=== PATIENT | female | born 1970 | race Caucasian/White ===

== ENCOUNTER 2025-03-01 12:18 | Outpatient (CLI) | payer OTHER, SELFPAY ==
--- NOTE | 2025-03-01 | ECG_ITS ---
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 Interpretive Statements EXERCISE STRESS TEST EXERCISE DATA: The patient was exercised by Wood protocol. Baseline heart rate was 60 beats per minute. Baseline blood pressure was 120/76 millimeters of mercury. Maximal predicted heart rate was 167 beats per minute. Maximum heart rate achieved was 156 which was 93% of the maximum predicted heart rate. Maximum blood pressure was 200/86 millimeters of mercury. Total exercise time was 11 minutes. Maximum METs achieved was 13.5. The reason for ending the test was completion of protocol. The patient complained of shortness of breath during the stress test, which then resolved at the end of the test. ELECTROCARDIOGRAM: BASELINE: Showed sinus rhythm, normal axis, no significant ST-T changes at the baseline noted. [] EXERCISE: At the peak exercise level, [] No significant ST-T changes suggestive of ischemia noted. [] RECOVERY: During the recovery period, heart rate dropped appropriately. No significant ST-T changes in the recovery suggestive of ischemia noted. [] CONCLUSION: 1. Exercise capacity is excellent 2. Heart rate response was appropriate 3. Blood pressure response was hypertensive 4. Symptoms not suggestive of ischemia. 5. Stress test does not demonstrate evidence of ischemia Electronically Signed On 03-02-2025 23:45:00 CDT by Sawyer Colon M.D. [email or web address]
[2025-03-01 12:44] VITALS: BMI 23.6
[2025-03-01 13:31] VITALS: BP 157/79; PULSE 86
--- NOTE | 2025-03-01 15:45 | USCV_ITS ---
Jayy Huynh Age: 54 Gender: F : 1970 Exam Date: 03/01/2025 15:59 Ordering Phys: Elbert Macedo MD ([email or web address]) Technologist: Blake Doss Exam Location: [facility] [place] Indication: cardiac clearance, chest pain, sob BP: 122 / 80 HR: 64 Rhythm: Sinus Technical Quality: Adequate MEASUREMENTS (Male / Female) Normal Values 2D ECHO LV Diastolic Diameter PLAX 3.9 cm 4.2 - 5.9 / 3.9 - 5.3 cm IVS Diastolic Thickness 0.7 cm 0.6 - 1.0 / 0.6 - 0.9 cm IVS Systolic Thickness 0.9 cm LVPW Diastolic Thickness 1.0 cm 0.6 - 1.0 / 0.6 - 0.9 cm LVPW Systolic Thickness 1.5 cm LVOT Diameter 2.0 cm LV Ejection Fraction 2D Teich 60.3 % LV Ejection Fraction MOD 4C 67.0 % LV Ejection Fraction MOD 2C 62.2 % LV Ejection Fraction 2C AL 61.6 % LA Diameter 3.5 cm RA Systolic Volume 4C AL 47.1 ml RA Systolic Volume 4C MOD 47.0 ml LA Sys Volume AL 51.7 cm cubed LA Sys Volume Index AL 28.1 cm cubed/m squared Aorta at Sinotubular Diameter 2.2 cm IVC Diameter 2.2 cm M-MODE LA Ao Ratio MM 1.3 MV E Point Septal Separation 0.3 cm AV Cusp Separation MM 1.4 cm DOPPLER AV Peak Velocity 161.0 cm/s LVOT Peak Velocity 101.0 cm/s AV Area Cont Eq vti 2.4 cm squared AV Area Cont Eq pk 2.0 cm squared MV Peak Velocity 124.0 cm/s MV Area PHT 7.2 cm squared Mitral E to A Ratio 1.2 TV Peak Velocity 286.7 cm/s TR Peak Velocity 325.0 cm/s TR Peak Gradient 42.3 mmHg TR Mean Velocity 267.0 cm/s TR Mean Gradient 29.8 mmHg TR Velocity Time Integral 84.6 cm PV Peak Velocity 103.0 cm/s RV Ejection Time 0.3 s FINDINGS Left Ventricle Normal left ventricular size, systolic function and wall thickness, with no regional wall motion abnormalities. Left ventricular ejection fraction is estimated at 55%. Normal diastolic function. Right Ventricle The right ventricle is normal in size and function. Right Atrium The right atrium is normal in size. Left Atrium The left atrium is normal in size. Mitral Valve Structurally normal mitral valve without significant stenosis or prolapse. There is no mitral regurgitation. Aortic Valve Mild aortic valve calcification. No aortic valve stenosis. Trace aortic valve regurgitation. Tricuspid Valve Structurally normal tricuspid valve without significant stenosis or regurgitation. Pulmonary artery systolic pressure is normal. Pulmonic Valve Structurally normal pulmonic valve without significant stenosis. There is no pulmonic regurgitation. Pericardium Normal pericardium without effusion. Aorta Normal ascending aorta dimension. IVC The inferior vena cava appears normal. CONCLUSIONS Normal left ventricular size, systolic function and wall thickness, with no regional wall motion abnormalities. Left ventricular ejection fraction is estimated at 55%. Normal diastolic function. There is no pericardial effusion. No significant valve abnormalities. Right atrial pressure is around 5 mm of mercury. Elbert Macedo MD (Electronically Signed) Final Date: 08 March 2025 18:59 S
== END 2025-03-01 12:19 | disposition home or self-care (01) ==
PROVIDERS: PCP Student in an Organized Health Care Education/Training Program; Visit Provider Internal Medicine Cardiovascular Disease
DX: Z01.818 Encounter for other preprocedural examination (principal); R07.9 Chest pain, unspecified; R06.02 Shortness of breath; I70.0 Atherosclerosis of aorta; I35.1 Nonrheumatic aortic (valve) insufficiency
CPT/HCPCS: 93017; 93306